=== PATIENT | female | born 1970 | race Caucasian/White ===

== ENCOUNTER 2019-06-05 20:47 | Emergency (ER) | payer BC ==
[~2019-06-05 20:47] MED LIST: ALBU8.5H IH; AMIT-104 PO; AMOX-362 PO; AMOX-559 PO; AZEL23SP NS; BUDE10.25 IH; DESL1TBM7 PO; ESTR-28 PO; FLUC150T40 PO; FLUT16SP19 NS; HYDR-653 PO; LORA-1455 PO; LORA-1456 PO; LORA10CA3 PO; MECL12.5 PO; MECL25TA9 PO; MOMR ENA; MONT10TA PO; NIT100 PO; NO ROUTINE MEDS; ONDA4TAB PO; SCOT TD; VENL37.594 PO
--- NOTE | 2019-06-05 20:55 | ER Report ---
History and Physical Time Seen By MD: 20:51 Hx. of Stated Complaint: LOWER BACK PAIN HPI/ROS CHIEF COMPLAINT: Low back pain HISTORY OF PRESENT ILLNESS: This is a patient who is 49 years old. She has been having some pain in the low back for several weeks now. Originally happen when she bent over to pick something up and had pain. Pain is mainly in the right lower back and does go down into her gluteal into the upper thigh. She has continued her running. Taking ibuprofen maybe once a day to avoid taking too much. She has had low back problems in the past and has a history of laminectomy. She does have an appointment coming up in [address] Bunch at [facility]. She denies any weakness in the legs. There is no saddle anesthesia. She has no loss of control of bowel or bladder function. No fevers or chills. Allergies: Coded Allergies: No Known Drug Allergies (Unverified , 06/05/19) Home Meds Active Scripts Tizanidine Hcl (TIZANIDINE HCL) 4 Mg Tablet, 4 MG PO TID PRN for PAIN, #10 TAB 0 Refills You can take a full tablet or break into 1/2 or 1/4 tablet every 8 hours as needed for pain. Prov:SOFY ORELLANA MD 06/05/19 Reported Medications Albuterol Sulfate (PROVENTIL HFA) 6.7 Gm Inh, 1-2 PUFF INH 3-4XD, INH 06/05/19 Escitalopram Oxalate (LEXAPRO) 20 Mg Tablet, 10 MG PO QDAY, TAB 06/05/19 Fluticasone/Vilanterol 100/25 Mcg/Inh (BREO ELLIPTA 100/25 MCG) 1 Each Aer.pow.ba, 1 INH INH QDAY, INH 06/05/19 Azelastine/Fluticasone (DYMISTA NASAL SPRAY) 23 Gm Elkin.pump, 23 GM NS 04/23/17 Discontinued Reported Medications Venlafaxine Hcl (EFFEXOR XR) 37.5 Mg Cap.er.24h, 37.5 MG PO QDAY 08/27/17 Estrogen,Con/M-Progest Acet (PREMPHASE 0.625-5 MG TABLET) 1 Each Tablet, 1 EACH PO QDAY 08/24/17 Montelukast Sodium (SINGULAIR) 10 Mg Tablet, 1 TAB PO QDAY, TAB 07/26/17 Albuterol Sulfate 90 Mcg/Act (PROAIR HFA 90 MCG/ACT) 8.5 Gm Hfa.aer.ad, 1-2 PUFF IH 3-4XD, INHALER 04/23/17 Budesonide/Formoterol Fumarate (SYMBICORT 80-4.5 MCG INHALER) 10.2 Gm Hfa.aer.ad , 10.2 GM IH 04/23/17 Discontinued Scripts Lorazepam (ATIVAN) 0.5 Mg Tablet, 0.5 MG PO Q4-6H PRN for ANXIETY, #8 TAB 0 Refills Prov:SOFY ORELLANA MD 07/26/17 Reviewed Nurses Notes: Yes Hx Smoking: No Smoking Status: Never Smoker Hx Substance Use Disorder: No Hx Alcohol Use: No Constitutional Vital Sign - Last 24 Hours 06/05/19 06/05/19 06/05/19 06/05/19 20:50 21:00 21:15 21:30 Temp 98.3 Pulse 54 56 52 56 Resp 16 B/P (MAP) 124/71 124/71 (88) 118/67 (84) 106/54 (71) Pulse Ox 95 96 95 93 O2 Delivery Room Air 06/05/19 06/05/19 21:45 22:00 Pulse 54 54 B/P (MAP) 104/65 (78) Pulse Ox 93 93 Physical Exam General appearance: alert no distress Back: Thoracic spine has no spinal or paraspinal tenderness to palpation. Lumbar spine has no pain over the spinous processes but has paraspinal tenderness in the right lumbar Gastrointestinal: Soft, nontender, nondistended. Cardiovascular: Normal capillary refill and pulses to feet. Neurological: Motor function: leg strength normal and symmetric for both legs Sensory function: normal for all leg dermatomes. Straight leg raise negative to 70 degrees. DIFFERENTIAL DIAGNOSIS: After history and physical exam differential diagnosis was considered for back pain including muscular strain, herniated disc, intra- abdominal and renal causes. Medical Decision Making EKG/Imaging Imaging L-SPINE 2 OR 3 VIEW INDICATION: Low back pain. COMPARISON: None available FINDINGS: 3 views of the lumbar spine. There are 5 nonrib-bearing lumbar vertebral bodies. The vertebral bodies are aligned. No compression fractures, bony lesions or spondylolysis. Moderate degenerative changes are seen from L3 through S1 including disc space narrowing, endplate changes, vacuum disc phenomena, ostitis and facet arthropathy. The endplates are maintained. Pedicles well seen. Soft tissues are unremarkable. IMPRESSION: Degenerative changes without acute abnormality. Report Dictated By: Nicola Mesfin at 06/05/2019 9:39 PM ED Course/Re-evaluation ED Course No red flag symptoms present. Discussed this with the patient. Would like her to increase her ibuprofen use. She will keep her appointment with Dr. Bunch. Discussed red flag symptoms to watch for that would indicate the need to come back for emergent MRI imaging. Decision to Disposition Date: Jun 05, 2019 Decision to Disposition Time: 21:56 Depart Departure Latest Vital Signs Vital Signs Date Time Temp Pulse Resp B/P (MAP) Pulse Ox O2 Delivery O2 Flow Rate FiO2 06/05/19 22:00 54 104/65 (78) 93 06/05/19 20:50 98.3 16 Room Air Impression: Primary Impression: Low back pain Condition: Improved Disposition: HOME OR SELF-CARE Referrals: HARVEY CABRERA PA-C (PCP) New Scripts Tizanidine Hcl (TIZANIDINE HCL) 4 Mg Tablet 4 MG PO TID PRN for PAIN, #10 TAB 0 Refills You can take a full tablet or break into 1/2 or 1/4 tablet every 8 hours as needed for pain. Prov: SOFY ORELLANA MD 06/05/19 Patient Instructions: Acute Low Back Pain (ED) Additional Instructions: We feel that your pain is likely due to low back pain from muscle strain. You have components of sciatica as well. Increase your Ibuprofen use to 800mg three times a day with food on a consistent basis for the next 4-5 days. Keep your appointment with Dr. Bunch for further evaluation, especially with your history of back problems in the past. If you have loss of control of bowel or bladder, where you lose control or cannot go when you want, or if you have weakness in the legs, or if you have numbness in the crotch/saddle area, please return to the ER for re-evaluation as these can represent need tor further evaluation with MRI. Similarly, if you have fevers/chills, please return as well. Relative rest at this time, so keep moving, but no heavy activity such as lifting or running. If you want to try a muscle relaxer, you can try Tizanidine 4mg tablets. Take 1 or break into 1/2 or 1/4 tablet every 8 hours as needed for pain or spasming. Problem Qualifiers Primary Impression: Low back pain Chronicity: acute Back pain laterality: right Sciatica presence: with sciatica Sciatica laterality: sciatica of right side Qualified Codes: M54.41 - Lumbago with sciatica, right side SOFY ORELLANA MD Jun 05, 2019 20:55
[2019-06-05] MEDS ORDERED: ALB6.7R INH (20:58)
[2019-06-05] MEDS ORDERED: ESCI20TA38 PO (20:58)
[2019-06-05] MEDS ORDERED: FLUT1AER INH (20:58)
--- NOTE | 2019-06-05 21:47 | RADIOLOGY IMAGING REPORT ---
FACILITY: [facility] PATIENT NAME: Gena Kowalski : 1970 MR: [id number] V: [id number] EXAM DATE: ORDERING PHYSICIAN: SOFY ORELLANA TECHNOLOGIST: Location: [facility] [place] Patient: Gena Kowalski : 1970 Visit/Account:[id number] Date of Sevice: 06/05/2019 L-SPINE 2 OR 3 VIEW INDICATION: Low back pain. COMPARISON: None available FINDINGS: 3 views of the lumbar spine. There are 5 nonrib-bearing lumbar vertebral bodies. The vert ebral bodies are aligned. No compression fractures, bony lesions or spondylolysis. Moderate degenerat vilma changes are seen from L3 through S1 including disc space narrowing, endplate changes, vacuum disc phenomena, ostitis and facet arthropathy. The endplates are maintained. Pedicles well seen. Soft tis sues are unremarkable. IMPRESSION: Degenerative changes without acute abnormality. Report Dictated By: Nicola Toure at 06/05/2019 9:39 PM Report E-Signed By: Nicola Toure at 06/05/2019 9:40 PM WSN:[id number]
[2019-06-05 22:00] VITALS: BP 104/65
[2019-06-05] MEDS ORDERED: TIZA-128 PO (22:04)
== END 2019-06-05 22:10 | disposition home or self-care (01) ==
LOC: ER 21:09
DX: M54.41 Lumbago with sciatica, right side (principal)
CPT/HCPCS: 72100; 99283